=== PATIENT | male | born 1965 | race Two or more races ===

== ENCOUNTER → 2018-01-05 | Outpatient (CLI) | payer BC, MEDICARE ==
--- NOTE | 2018-01-05 22:26 | MR ---
EXAMINATION TYPE: MR lumbar spine wo con DATE OF EXAM: 01/05/2018 COMPARISON: NONE HISTORY: 52 year-old male right foot drop, low back pain for 6 months TECHNIQUE: Multiplanar, multisequence images of the lumbar spine were acquired. Findings: Vertebral body heights are preserved and alignment is maintained. No suspicious bone marrow replacement. Conus medullaris is normal. Ectasia of the upper abdominal aorta 2.7 cm. Otherwise, no prevertebral or paravertebral soft tissue abnormality. Degenerative disc disease particularly at L4-L5 and L5-S1 with disc desiccation and disc bulging. Pos terior annular fissure is present at L4-L5. Facet arthropathy mid to lower lumbar spine. At T12-L1, no spinal canal or foraminal stenosis. At L1-2, no spinal canal or neuroforaminal stenosis. At L2-L3, there is mild facet arthropathy without significant canal or neural foraminal stenosis. At L3-L4, there is facet degenerative change contributing to minimal bilateral inferior neural forami nal narrowing. No spinal canal stenosis. At this level, there is some clumping of the cauda equina ne rve roots noted, refer to axial image 11. At L4-L5, there is broad-based posterior disc protrusion with annular fissure. This impresses onto th e ventral thecal sac mildly narrowing the spinal canal. Additional facet degenerative change with mil d to moderate left and mild right neuroforaminal stenosis. At L5-S1, facet degenerative change and bulging disc. This contributes to mild right greater than lef t neuroforaminal stenosis. IMPRESSION: 1. Degenerative disc disease L4-L5 and L5-S1. 2. There is a prominent posterior annular fissure at L4-L5. Just above this level, there is some clum ping of the cauda equina nerve roots that can be seen with arachnoiditis. Clinically correlate. 3. Additional facet arthropathy mid to lower lumbar spine. 4. Changes result in overall mild spinal canal stenosis at L4-L5 with mild to moderate left and mild right foraminal stenosis at this level. 5. Mild right greater than left neural foraminal stenosis at L5-S1.
== END ==
LOC: RADMRIMAIN 16:32
PROVIDERS: ATTEND Psychiatry & Neurology Pain Medicine
DX: M48.061 Spinal stenosis, lumbar region without neurogenic claudication (principal); M99.73 Connective tissue and disc stenosis of intervertebral foramina of lumbar region; M51.37 Other intervertebral disc degeneration, lumbosacral region; M46.97 Unspecified inflammatory spondylopathy, lumbosacral region
CPT/HCPCS: 72148